=== PATIENT | female | born 1985 | race Caucasian/White ===

== ENCOUNTER 2022-02-20 16:34 | Emergency (ER) | payer OTHER ==
[2022-02-20] MEDS ORDERED: Acetaminophen 500 MG TAB ONE (16:58)
[2022-02-20] MEDS ORDERED: Sodium Chloride 0.9% 1,000 ML ONE (16:58)
[2022-02-20 17:02] LABS: #Basophils 0.1 thou/uL (0.0-0.2); #Lymphocytes 1.1 thou/uL (1.20-3.40); #Monocytes 1.2 thou/uL (0.11-0.59); #Neutrophils 10.8 thou/uL (1.40-6.50); %Eosinophils 0.1 % (0.0-10.0); %Lymphocytes 8.5 % (21.0-51.0); %Monocytes 8.8 % (0.0-10.0); %Neutrophils 81.5 % (42.0-75.0); Hemoglobin 11.3 g/dL (12.0-16.0); Mean Corpuscular Hemoglobin 27.3 pg (27.0-31.0); Mean Corpuscular Volume 87.9 fL (78.0-98.0); Platelet Count 193 thou/uL (130-400); RBC Distribution Width 12.2 % (11.5-14.5); Red Blood Cell (RBC) Count 4.14 mill/uL (4.20-5.40); White Blood Cell (WBC) Count 13.3 thou/uL (4.8-10.8)
[2022-02-20 17:03] LABS: Mean Platelet Volume 12.5 fL (7.4-10.4)
[2022-02-20 17:20] LABS: ALT (SGPT) 32 U/L (8-55); AST (SGOT) 25 U/L (5-34); Albumin 2.8 g/dL (3.5-5.0); Alkaline Phosphatase 181 U/L (40-110); Anion Gap 15 mmol/L (10-20); BUN (Urea Nitrogen) 11 mg/dL (7.0-18.7); Bilirubin, Total 0.4 mg/dL (0.2-1.2); Calc. Creatinine Clearance 0 mL/min (70-130); Calcium 8.5 mg/dL (7.8-10.44); Carbon Dioxide 19 mmol/L (22-29); Chloride 106 mmol/L (98-107); Globulin 3.1 g/dL (2.4-3.5); Glucose 95 mg/dL (70-105); Protein, Total 5.9 g/dL (6.0-8.3); Sodium 136 mmol/L (136-145)
[2022-02-20 17:31] LABS: Amphetamine Detected (NotDetected); Barbiturates Screen Not Detected (NotDetected); Benzodiazepine Screen Not Detected (NotDetected); Cocaine Metabolite Screen Not Detected (NotDetected); Medtox Control Line Valid? VALID (VALID); Methadone Not Detected (NotDetected); Methamphetamine Detected (NotDetected); Opiate Screen Detected (NotDetected); Oxycodone Screen Not Detected (NotDetected); Phencyclidine (PCP) Not Detected (NotDetected); THC/Cannabinoid Screen Not Detected (NotDetected); Tricyclic Screen Not Detected (NotDetected)
[2022-02-20 17:33] LABS: Clarity SL HAZY (Clear)
[2022-02-20 17:34] LABS: Bilirubin Small (Negative); Blood, Urine Negative (Negative); Glucose, Urine (Dipstick) Negative (Negative); Ketone, Urine Trace mg/dL (Negative); Leukocyte Negative (Negative); Nitrite Negative (Negative); Protein, Urine (Dipstick) 30 mg/dL (Neg-Trace); Specific Gravity, Urine 1.032 (1.002-1.036); pH, Urine 5.5 (5.0-9.0)
[2022-02-20 17:41] LABS: Mucous/LPF 3+ LPF (<2+); RBC/HPF 0-3 HPF (0-3); Squamous Epithelial 0-3 HPF (0-3)
[2022-02-20] MEDS ORDERED: Magnesium 2 GM/50 ML BAG (IN WATER) ONE ×2 (17:46→18:00)
[2022-02-20 17:58] LABS: SARS-CoV-2 NAA Rapid Test Not Detected (NotDetected)
[2022-02-20] MEDS ORDERED: Sodium Chloride 0.9% 100 ML ONE (18:02)
== END 2022-02-20 18:47 | disposition short-term general hospital (02) ==
LOC: NAV ERS 16:34
DX: O60.03 Preterm labor without delivery, third trimester (principal); O99.323 Drug use complicating pregnancy, third trimester; F19.10 Other psychoactive substance abuse, uncomplicated; O99.333 Smoking (tobacco) complicating pregnancy, third trimester; F17.210 Nicotine dependence, cigarettes, uncomplicated; Z20.822 Contact with and (suspected) exposure to COVID-19; Z3A.28 28 weeks gestation of pregnancy
CPT/HCPCS: 80053; 80306; 81003; 81015; 85025; 96365; J3475; J7050; U0002

== ENCOUNTER 2022-08-08 04:15 | Emergency (ER) | payer OTHER ==
[2022-08-08] MEDS ORDERED: Ketorolac Tromethamine 60 MG/2 ML VIAL ONE (05:09)
== END 2022-08-08 05:25 | disposition home or self-care (01) ==
LOC: NAV ERS 04:15
DX: J02.9 Acute pharyngitis, unspecified (principal); F17.210 Nicotine dependence, cigarettes, uncomplicated
CPT/HCPCS: 87081; 87430; 96372; 99283; J1885

== ENCOUNTER 2022-08-09 10:08 | Emergency (ER) | payer OTHER, SELFPAY | END 2022-08-09 11:30 | disposition left against medical advice (07) | LOC: NAV ERS 10:08 | DX: J36 Peritonsillar abscess (principal); F17.210 Nicotine dependence, cigarettes, uncomplicated | CPT/HCPCS: 99282 ==

== ENCOUNTER 2022-11-27 00:28 | Emergency (ER) | payer OTHER ==
[2022-11-27 01:07] LABS: Bilirubin Negative (Negative); Blood, Urine Negative (Negative); Clarity Clear (Clear); Glucose, Urine (Dipstick) Negative (Negative); Ketone, Urine Negative (Negative); Leukocyte Small (Negative); Nitrite Negative (Negative); Protein, Urine (Dipstick) Negative (Neg-Trace); Urobilinogen 0.2 mg/dL (Less than 2); pH, Urine 5.5 (5.0-9.0)
[2022-11-27 01:12] LABS: Specific Gravity, Urine 1.023 (1.002-1.036)
[2022-11-27] MEDS ORDERED: cefTRIAXone\\ROCEPHIN 500 MG VIAL ONE (01:12)
[2022-11-27] MEDS ORDERED: Lidocaine 1% (PF) 30 ML VIAL ONE (01:12)
[2022-11-27] MEDS ORDERED: Azithromycin 250 MG TAB ONE ×2 (01:12→01:13)
[2022-11-27 01:13] LABS: Bacteria/HPF Rare-Few HPF (None Seen); RBC/HPF 0-3 HPF (0-3); WBC/HPF Greater than 50 HPF (0-3)
[2022-11-27 01:14] LABS: Pregnancy Test - Urine (BHCG) Negative (Negative); Pregu Control Background? CLEAR/WHITE (CLR/WHITE); Pregu Control Bar Appear? YES (CONTROL BAR); Specific Gravity 1.023 (1.002-1.036)
[2022-11-27 22:51] LABS: Chlam.trachomatis by PCR,Urine Not Detected (NotDetected)
== END 2022-11-27 01:31 | disposition home or self-care (01) ==
LOC: NAV ERS 00:28
DX: Z20.2 Contact with and (suspected) exposure to infections with a predominantly sexual mode of transmission (principal); I10 Essential (primary) hypertension; F17.210 Nicotine dependence, cigarettes, uncomplicated
CPT/HCPCS: 81003; 81015; 81025; 87491; 87591; 96372; 99283; J0696; J2001

== ENCOUNTER 2023-04-25 18:50 | Emergency (ER) | payer OTHER ==
[2023-04-25 19:06] LABS: Bilirubin Negative (Negative); Blood, Urine Negative (Negative); Clarity Cloudy (Clear); Glucose, Urine (Dipstick) Negative (Negative); Ketone, Urine Negative (Negative); Leukocyte Moderate (Negative); Nitrite Negative (Negative); Protein, Urine (Dipstick) Negative (Neg-Trace)
[2023-04-25 19:09] LABS: CAUTI Indications for Culture Dysuria,urgency,freq; RBC/HPF 0-3 HPF (0-3); Specific Gravity, Urine 1.029 (1.002-1.036)
[2023-04-25 19:10] LABS: Bacteria/HPF 2+ HPF (None Seen); Mucous/LPF 2+ LPF (<2+); WBC/HPF 21-50 HPF (0-3)
[2023-04-25 19:11] LABS: Urine Culture Reflex Yes Yes
[2023-04-25] MEDS ORDERED: cefTRIAXone (ROCEPHIN) 500 MG VIAL ONE (19:20)
[2023-04-25] MEDS ORDERED: Lidocaine 1% (PF) 30 ML VIAL ONE (19:20)
[2023-04-26 20:21] LABS: Chlam.trachomatis by PCR,Urine Not Detected (NotDetected); GC N.gonorrhoeae PCR,UrineVOID Not Detected (NotDetected)
== END 2023-04-25 19:52 | disposition home or self-care (01) ==
LOC: NAV ERS 18:50
DX: N89.8 Other specified noninflammatory disorders of vagina (principal); F17.210 Nicotine dependence, cigarettes, uncomplicated
CPT/HCPCS: 81001; 87086; 87491; 87591; 96372; 99283; J0696; J2001

== ENCOUNTER 2024-03-16 02:38 | Emergency (ER) | payer MEDICAID, OTHER | END 2024-03-16 05:16 | disposition home or self-care (01) | LOC: NAV ERS 02:38 | DX: M79.89 Other specified soft tissue disorders (principal); F17.210 Nicotine dependence, cigarettes, uncomplicated | CPT/HCPCS: 99284 ==

== ENCOUNTER 2025-06-29 11:43 | Emergency (ER) | payer MEDICAID, SELFPAY | END 2025-06-29 12:19 | disposition home or self-care (01) | LOC: NAV ERS 11:43 | DX: J02.9 Acute pharyngitis, unspecified (principal); F17.210 Nicotine dependence, cigarettes, uncomplicated; Z59.71 Insufficient health insurance coverage | CPT/HCPCS: 87081; 87430; 99283 ==